=== PATIENT | female | born 1965 | race Asian ===

== ENCOUNTER 2019-01-12 16:49 | Outpatient (REF) | payer OTHER, SELFPAY ==
[2019-01-12 19:41] LABS: ALT 85 U/L (12-78); AST 28 U/L (15-37); Anion Gap 10.9 mmol/L (3-11); BUN 18 mg/dL (7-18); CO2 26.1 mmol/L (21.0-32.0); CREATININE 1.05 mg/dL (0.55-1.02); Calcium 9.4 mg/dL (8.5-10.1); Chloride 106 mmol/L (98-107); Estimated GFR 54.82 (mL/min/1.73m2); Glucose 90 mg/dL (70-100); Potassium 4.1 mmol/L (3.5-5.1); Sodium 143 mmol/L (136-145)
== END 2019-01-12 17:09 ==
LOC: NCHCN 16:49
PROVIDERS: PCP Nurse Practitioner Family; Visit Provider Nurse Practitioner Family
DX: I10 Essential (primary) hypertension (principal)
CPT/HCPCS: 80048; 84450; 84460

== ENCOUNTER 2020-02-08 08:31 | Outpatient (REF) | payer OTHER, SELFPAY ==
[2020-02-08 19:55] LABS: Anion Gap 9.2 mmol/L (3-11); BUN 20 mg/dL (7-18); CO2 28.8 mmol/L (21.0-32.0); CREATININE 0.97 mg/dL (0.55-1.02); Calculated LDL 103 mg/dL (<100); Chloride 104 mmol/L (98-107); Cholesterol 198 mg/dL (<200); Estimated GFR 59.84 (mL/min/1.73m2); Glucose 106 mg/dL (74-106); HDL Cholesterol 52 mg/dL (40-60); Potassium 4.1 mmol/L (3.5-5.1); Sodium 142 mmol/L (136-145); Triglyceride 215 mg/dL (<150)
[2020-02-08 20:49] LABS: Hemoglobin A1C 5.7 % (3.8-5.6)
== END 2020-02-08 08:51 ==
LOC: NCHCN 08:31
PROVIDERS: PCP Nurse Practitioner Family; Visit Provider Nurse Practitioner Family
DX: I10 Essential (primary) hypertension (principal); E78.5 Hyperlipidemia, unspecified; R73.9 Hyperglycemia, unspecified
CPT/HCPCS: 80048; 80061; 83036

== ENCOUNTER 2020-06-14 16:14 | Outpatient (REF) | payer OTHER, SELFPAY ==
[2020-06-17 07:54] LABS: SARS-CoV-2 RNA Undetected (Undetected); SARS-CoV-2 Specimen Source Nasopharynx
== END 2020-06-14 16:34 ==
LOC: LBN 16:14
PROVIDERS: PCP Nurse Practitioner Family; Visit Provider Physician Assistant
DX: R06.02 Shortness of breath (principal)
CPT/HCPCS: U0003

== ENCOUNTER 2020-09-07 13:23 | Outpatient (REF) | payer OTHER, SELFPAY ==
[2020-09-07 19:20] LABS: ALT 76 U/L (14-59); AST 28 U/L (15-37); Albumin 4.1 g/dL (3.4-5.0); Alkaline Phosphatase 97 U/L (46-116); Anion Gap 12.2 mmol/L (3-11); BUN 13 mg/dL (7-18); Bilirubin, Total 0.4 mg/dL (0.2-1.0); CO2 24.8 mmol/L (21.0-32.0); CREATININE 0.91 mg/dL (0.55-1.02); Calcium 9.1 mg/dL (8.5-10.1); Chloride 106 mmol/L (98-107); Glucose 176 mg/dL (74-106); NT-proBNP 233 pg/mL (<300); Potassium 3.7 mmol/L (3.5-5.1); Sodium 143 mmol/L (136-145); TSH (W/Ref FT4) 0.87 uIU/mL (0.36-3.74); Total Protein 7.5 g/dL (6.4-8.2)
== END 2020-09-07 13:43 ==
LOC: NCHCN 13:23
PROVIDERS: PCP Nurse Practitioner Family; Visit Provider Physician Assistant
DX: I10 Essential (primary) hypertension (principal); E78.5 Hyperlipidemia, unspecified
CPT/HCPCS: 80053; 83880; 84443

== ENCOUNTER 2021-09-20 08:55 | Outpatient (REF) | payer OTHER, SELFPAY ==
[2021-09-20 19:55] LABS: ALT 83 U/L (14-59); AST 40 U/L (15-37); Albumin 4.4 g/dL (3.4-5.0); Alkaline Phosphatase 86 U/L (46-116); Anion Gap 11.2 mmol/L (3-11); BUN 23 mg/dL (7-18); Bilirubin, Total 0.6 mg/dL (0.2-1.0); CO2 26.8 mmol/L (21.0-32.0); CREATININE 1.3 mg/dL (0.55-1.02); Calcium 9.5 mg/dL (8.5-10.1); Calculated LDL 93 mg/dL (<100); Chloride 107 mmol/L (98-107); Cholesterol 176 mg/dL (<200); Estimated GFR 42.37 (mL/min/1.73m2); Glucose 96 mg/dL (74-106); HDL Cholesterol 44 mg/dL (40-60); Potassium 4.2 mmol/L (3.5-5.1); Sodium 145 mmol/L (136-145); Total Protein 7.9 g/dL (6.4-8.2); Triglyceride 195 mg/dL (<150)
== END 2021-09-20 08:56 | disposition home or self-care (01) ==
LOC: NCHCN 08:55
PROVIDERS: PCP Nurse Practitioner Family; Visit Provider Nurse Practitioner Family
DX: I10 Essential (primary) hypertension (principal); E78.5 Hyperlipidemia, unspecified
CPT/HCPCS: 80053; 80061

== ENCOUNTER 2022-04-15 11:38 | Outpatient (REF) | payer OTHER, SELFPAY ==
--- NOTE | 2022-04-15 13:15 | PAPFT_PTH ---
PATIENT: Jose Ayers [facility]: [facility][id number] AGE/SX: 56/F ROOM: RE04/15/[address]: Nidia Sr : 1965 BED: DIS: 04/15/2022 SPEC #: [id number] RECD: 04/16/22 13:00 STATUS: DAYRONKristal RERen #: [id number] GLENDY: 04/15/22 13:[address] Cytology RECD BY: Inna Broussard ENTERED: 04/16/22 13:00 SP TYPE: PAPFT OTHR DR: Ayse Christiansen Tissues: 1 - CX/ENDOCX FOR PAP SMEARS Procedures: PAP THIN PREP/[facility] Screening HPV DNA PROBE Comments: [id number]
== END 2022-04-15 11:39 | disposition home or self-care (01) ==
LOC: NCHCN 11:38
PROVIDERS: PCP Nurse Practitioner Family; Visit Provider Nurse Practitioner Family
DX: Z12.4 Encounter for screening for malignant neoplasm of cervix (principal); Z11.51 Encounter for screening for human papillomavirus (HPV)
CPT/HCPCS: 88142; 87624

== ENCOUNTER 2023-11-24 18:15 | Outpatient (REF) | payer OTHER, SELFPAY ==
[2023-11-24 19:19] LABS: Anion Gap 13.1 mmol/L (3-11); BUN 16 mg/dL (7-18); CO2 23.9 mmol/L (21.0-32.0); Calcium 9.2 mg/dL (8.5-10.1); Chloride 108 mmol/L (98-107); Glucose 105 mg/dL (74-106); Potassium 3.5 mmol/L (3.5-5.1); Sodium 145 mmol/L (136-145)
== END 2023-11-24 18:16 | disposition home or self-care (01) ==
LOC: NCHCN 18:15
PROVIDERS: PCP Nurse Practitioner Family; Visit Provider Nurse Practitioner Family
DX: R73.03 Prediabetes (principal)
CPT/HCPCS: 80048

== ENCOUNTER 2024-04-14 22:01 | Outpatient (REF) | payer OTHER, SELFPAY ==
[2024-05-18 08:50] LABS: Fungal Culture & Smear See Comments
== END 2024-04-14 22:02 | disposition home or self-care (01) ==
LOC: NCHCN 22:01
PROVIDERS: PCP Nurse Practitioner Family; Visit Provider Nurse Practitioner Family
DX: L28.2 Other prurigo (principal); H93.8X2 Other specified disorders of left ear
CPT/HCPCS: 87102; 87206

== ENCOUNTER 2024-11-22 11:27 | Outpatient (REF) | payer OTHER, SELFPAY ==
[2024-11-22 18:52] LABS: Calculated LDL 92 mg/dL (<100); Cholesterol 180 mg/dL (<200); HDL Cholesterol 56 mg/dL (40-60); Triglyceride 161 mg/dL (<150)
[2024-11-23 09:02] LABS: ALT 129 U/L (14-59); AST 52 U/L (15-37); Albumin 4.5 g/dL (3.4-5.0); Alkaline Phosphatase 87 U/L (46-116); Anion Gap 14.9 mmol/L (3-11); BUN 17 mg/dL (7-18); Bilirubin, Total 0.72 mg/dL (0.2-1.0); CO2 21.1 mmol/L (21.0-32.0); Calcium 10.2 mg/dL (8.5-10.1); Chloride 108 mmol/L (98-107); Glucose 104 mg/dL (74-106); Potassium 4.4 mmol/L (3.5-5.1); Sodium 144 mmol/L (136-145); Total Protein 8.6 g/dL (6.4-8.2)
== END 2024-11-22 11:28 | disposition home or self-care (01) ==
LOC: NCHCN 11:27
PROVIDERS: Visit Provider Nurse Practitioner Family
DX: I10 Essential (primary) hypertension (principal)
CPT/HCPCS: 80053; 80061

== ENCOUNTER 2025-04-13 19:36 | Outpatient (REF) | payer OTHER, SELFPAY ==
[2025-04-13 23:12] LABS: ALT 92 U/L (14-59); AST 36 U/L (15-37); Albumin 4.2 g/dL (3.4-5.0); Alkaline Phosphatase 87 U/L (46-116); Bilirubin, Direct 0.1 mg/dL (0.0-0.2); Bilirubin, Total 0.4 mg/dL (0.2-1.0); Total Protein 8.1 g/dL (6.4-8.2)
== END 2025-04-13 19:37 | disposition home or self-care (01) ==
LOC: NCHCN 19:36
PROVIDERS: Visit Provider Nurse Practitioner Family
DX: R94.5 Abnormal results of liver function studies (principal)
CPT/HCPCS: 80076